=== PATIENT | male | born 1945 | race Caucasian/White ===

== ENCOUNTER 2017-08-14 06:58 | Day surgery (SDC) | payer MEDICARE, BC ==
[2017-08-14] MEDS ORDERED: LIDOCAINE HCL 1% MPF SOL ONE (07:00)
[2017-08-14] MEDS ORDERED: PROPOFOL 500 MG/50 ML EMU IV ONE (07:00)
[2017-08-14 07:15] VITALS: TEMP 97.2
[2017-08-14 09:11] VITALS: PULSE 66
[2017-08-14 09:19] VITALS: BP 143/78; RESP 18; O2SAT 96
== END 2017-08-14 09:40 | disposition home or self-care (01) | DRG 392 ==
LOC: SURG 06:58
PROVIDERS: ATTEND Internal Medicine Gastroenterology
DX: R10.11 Right upper quadrant pain (principal); D64.9 Anemia, unspecified; E11.9 Type 2 diabetes mellitus without complications; D12.2 Benign neoplasm of ascending colon; D12.3 Benign neoplasm of transverse colon; K57.30 Diverticulosis of large intestine without perforation or abscess without bleeding; K64.8 Other hemorrhoids
CPT/HCPCS: J2001; J2704